=== PATIENT | male | born 1985 | race Hispanic/Latino ===

== ENCOUNTER 2022-08-15 18:38 | Emergency (ER) | payer OTHER, SELFPAY ==
--- NOTE | ~2022-08-15 | XR_ITS ---
EXAMINATION: XR chest 2V Exam Date/Time: 08/15/2022 18:53 CDT HISTORY: sob Comparison: None available. RESULT: Lines, tubes, and devices: None. Lungs and pleura: Clear. Cardiomediastinal silhouette: Unremarkable. Other: No acute osseous or upper abdominal finding. IMPRESSION: No acute cardiopulmonary process. Reviewed, dictated and finalized at location K.
[2022-08-15 18:53] VITALS: BP 152/87; PULSE 60; RESP 20; TEMP 36.9; O2SAT 99
--- NOTE | 2022-08-15 18:54 | ED.GENADULT ---
HPI - General Adult General Chief complaint: Upper Respiratory Infection Stated complaint: SOB Time Seen by Provider: 08/15/22 18:54 Source: patient Mode of arrival: ambulatory Limitations: no limitations History of Present Illness HPI narrative: 37-year-old male presents with complaint difficulty taking a deep breath. Reports that is making him feel short of breath. States that it happened last night while he was at home. [place] better today. 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 Reports that he had no difficulty breathing during these activities. began to feel symptoms began a few hours ago. Denies URI symptoms. Denies chest pain. No indigestion. Reports eating and drinking normally. No nausea vomiting diarrhea. States he has a fullness sensation in his chest and feels like not getting enough air in . He does not smoke or vape. He denies history of Anxiety other than feeling anxious currently from the way his breathing is at this time. he is speaking in full sentences. All systems reviewed and negative except as noted above. Related Data Home Medications Medication Instructions Recorded Confirmed No Home Medications 08/15/22 08/15/22 Allergies Allergy/AdvReac Type Severity Reaction Status Date / Time No Known Allergies Allergy Verified 08/15/22 18:44 Review of Systems Review of Systems: CONSTITUTIONAL: Denies fever, chills, or sweats. EYES: Denies visual changes, redness, or discharge. ENT: Denies rhinorrhea, congestion, sore throat, or otalgia. CARDIOVASCULAR: Denies chest pain, palpitations, or edema. RESPIRATORY: Denies cough . Reports dyspnea. GASTROINTESTINAL: Denies abdominal pain, nausea, vomiting, or diarrhea. GENITOURINARY: Denies dysuria or hematuria. SKIN: Denies rash or itching. MUSCULOSKELETAL: Denies back pain, joint pain, or myalgia. NEUROLOGIC: Denies headache, numbness, or weakness. PSYCHIATRIC: Denies anxiety or depression. All other systems reviewed are negative, except as documented in HPI. PMFSH Social History Social History Smoking status: Never smoker Alcohol intake: never Comments At time of signature, agree with nursing past medical, surgical, social and family history. There is no relevant family history pertinent to the presenting complaint. Exam Narrative: GENERAL: This is a well-nourished, well-developed patient, in no apparent distress. HEAD: normocephalic, atraumatic. EYES: PERRL. Sclera clear/white. Vision is grossly intact. EARS: External ears normal, auditory canals clear and without drainage, TMs normal without perforation. Hearing grossly intact. NOSE: External nose normal with no obvious nasal discharge, nares without redness, no rhinorrhea. THROAT: Mucous membranes moist, posterior pharynx clear. NECK: Neck supple, non-tender without lymphadenopathy, masses or thyromegaly. CARDIOVASCULAR: Regular rate and rhythm without murmurs, gallops, or rubs. RESPIRATORY: Clear to auscultation. Breath sounds equal bilaterally. No wheezes, rales, or rhonchi. SKIN: warm, Dry, intact with no suspicious lesions or rash, good texture and turgor. NEURO: awake, alert, and oriented to person, place and time. There were no obvious focal neurologic abnormalities. EXTREMITIES: No joint tenderness, effusion, or edema noted. Course Course Level of Care: Express Care Visit Vital Signs Vital signs: Vital Signs Temperature 36.9 C 08/15/22 18:53 Pulse Rate 60 08/15/22 18:53 Respiratory Rate 20 08/15/22 18:53 Blood Pressure 152/87 H 08/15/22 18:53 Pulse Oximetry 99 08/15/22 18:53 Oxygen Delivery Room Air 08/15/22 18:53 Temperature 36.9 C 08/15/22 18:53 Pulse Rate 60 08/15/22 18:53 Respiratory Rate 20 08/15/22 18:53 Blood Pressure 152/87 H 08/15/22 18:53 Pulse Oximetry 99 08/15/22 18:53 Oxygen Delivery Room Air 08/15/22 18:53 reviewed Transfer Transfered to: [facility] Transportation: Other (private car)
--- NOTE | 2022-08-15 19:04 | ECG_ITS ---
Measurements Intervals [place] Rate: 50 P: 70 RI: 202 QRS: 85 QRSD: 103 T: 47 QT: 402 QTc: 369 Interpretive Statements SINUS BRADYCARDIA VOLTAGE CRITERIA FOR LVH [MEETS CRITERIA IN ONE OF: R(aVL), S(V1), R(V5), R(V5/V6)+S(V1)] ST ELEVATION, CONSIDER EARLY REPOLARIZATION, PERICARDITIS OR INJURY PATTERN ABNORMAL ECG COMPARED TO ECG 08/15/2022 19:16:00 LEFT VENTRICULAR HYPERTROPHY NOW PRESENT Electronically Signed On 08-16-2022 14:35:41 CDT by Myron Gomez M.D.
== END 2022-08-15 19:33 | disposition short-term general hospital (02) ==
PROVIDERS: Emergency Provider Nurse Practitioner Family
DX: R06.00 Dyspnea, unspecified (principal); R94.31 Abnormal electrocardiogram [ECG] [EKG]
CPT/HCPCS: 71046; 93005; 99213; G0463

== ENCOUNTER 2022-08-15 19:51 | Emergency (ER) | payer OTHER, SELFPAY ==
[2022-08-15] VITALS (12 sets, daily range): BP systolic 136–147; BP diastolic 79–99; PULSE 42–56; RESP 13–18; TEMP 36.3–36.6; O2SAT 94–99
--- NOTE | ~2022-08-15 | XR_ITS ---
EXAMINATION: XR chest 2V Exam Date/Time: 08/15/2022 20:50 CDT HISTORY: sob Comparison: 08/15/2022 at 6:54 PM. RESULT: Lines, tubes, and devices: None. Lungs and pleura: Clear. Cardiomediastinal silhouette: Stable. Other: No acute osseous or upper abdominal finding. IMPRESSION: No acute cardiopulmonary process. Reviewed, dictated and finalized at location K.
--- NOTE | 2022-08-15 19:53 | ECG_ITS ---
Measurements Intervals [place] Rate: 53 P: 38 PA: 203 QRS: 83 QRSD: 100 T: 43 QT: 406 QTc: 383 Interpretive Statements SINUS BRADYCARDIA ST ELEVATION, PROBABLY EARLY REPOLARIZATION [ST ELEVATION WITH NORMALLY INFLECTED T WAVE] VERSUS PERICARDITIS ABNORMAL ECG NO PREVIOUS ECG AVAILABLE FOR COMPARISON Electronically Signed On 08-16-2022 14:35:00 CDT by Myron Gomez M.D.
[2022-08-15 20:14] LABS: Basophils Absolute Auto 0.1 K/mm3 (0.0-0.1); Eosinophils Absolute Auto 0.7 K/mm3 (0-0.3); Eosinophils Percent Auto 8.5 % (0-4.4); Hemoglobin 15.7 g/dL (14.0-18.0); Immature Granulocyte Absolute 0.02 K/mm3 (0.00-0.031); Immature Granulocyte Percent A 0.2 % (0-0.5); Lymphocytes Absolute Auto 2.28 K/mm3 (0.9-3.2); Lymphocytes Percent Auto 27.3 % (18.3-44.2); Mean Corpuscular HGB Conc 33.4 g/dl (32-36); Mean Corpuscular Hemoglobin 32.5 pg (26-34); Mean Corpuscular Volume 97.3 fl (80-100); Mean Platelet Volume 10.4 fl (7.4-10.4); Monocytes Absolute Auto 0.7 K/mm3 (0.1-0.6); Monocytes Percent Auto 8.3 % (2.6-8.5); Neutrophils Absolute Auto 4.6 K/mm3 (1.3-6.7); Neutrophils Percent Auto 54.7 % (45.5-73.1); Platelet Count Result 272 k/mm3 (150-375); Red Blood Count 4.83 M/mm3 (4.6-6.20); Red Cell Distribution Width 12.3 % (11.5-14.5); White Blood Count 8.3 K/mm3 (4.5-10.0)
[2022-08-15 20:29] LABS: Alanine Aminotransferase 38 U/L (6-50); Albumin Level 4.8 g/dL (3.5-5.1); Alkaline Phosphatase 77 U/L (38-126); Anion Gap 5 mmol/L (8-16); Aspartate Amino Transferase 48 U/L (17-59); Bilirubin,Total 0.6 mg/dL (0.2-1.3); Blood Urea Nitrogen 17 mg/dL (9-20); Calcium 9.1 mg/dL (8.4-10.2); Carbon Dioxide 35 mmol/L (22-30); Chloride 100 mmol/L (98-107); Estimated CRCL calculation 71 ml/min; Estimated Glomerular Filt Rate > 60; Glucose 77 mg/dL (65-110); Potassium 3.7 mmol/L (3.4-5.0); Sodium 140 mmol/L (137-145)
--- NOTE | 2022-08-15 22:10 | ED.SOB ---
HPI - SOB/Dyspnea General Chief Complaint: Shortness of Breath/Dyspnea Stated Complaint: sob Time Seen by Provider: 08/15/22 21:49 Source: patient and RN notes reviewed Mode of arrival: ambulatory Limitations: no limitations History of Present Illness HPI Narrative: This is a 37 year old male who presents for evaluation of shortness of breath. PAtient states last night while he was watching TV he started feeling short of breath. He states he feels like he can't take a good breath. He is unsure if it is chest tightness. He states he had this feeling last night into the morning. THis morning this feeling resolved. He was able to work out today without any chest pain or shortness of breath. He states he feels like is short of breath now. He denies cough, fever, chills, leg swelling, calf pain. He denies any recent travel or exposures. Related Data Home Medications Medication Instructions Recorded Confirmed No Home Medications 08/15/22 08/15/22 Allergies Allergy/AdvReac Type Severity Reaction Status Date / Time No Known Allergies Allergy Verified 08/15/22 19:52 Review of Systems Constitutional: Constitutional: Denies weakness Cardiovascular: Cardiovascular: Denies syncope, Denies rapid heart rate, Denies irregular heart rhythm, Denies leg edema and Denies dyspnea Respiratory: Respiratory: Denies chest congestion, Denies hemoptysis, Denies excessive phlegm production and Reports dyspnea Gastrointestinal: Gastrointestinal: Denies abdominal pain, Denies hematochezia, Denies diarrhea and Denies vomiting Genitourinary: Genitourinary: Denies hematuria, Denies dysuria, Denies penile discharge and Denies testicular pain Musculoskeletal: Musculoskeletal: Denies joint swelling, Denies loss of height and Denies muscle weakness Neurologic: Denies syncope, Denies focal weakness and Denies weakness PMFSH Surgical History Surgical History (Updated 08/15/22 @ 22:13 by Kat Painter MD) No significant past surgical history Social History Social History Smoking status: Never smoker Alcohol intake: never Exam Narrative: GENERAL: Well-appearing, well-nourished, and in no acute distress. HEAD: Normocephalic, atraumatic EYES: PERRLA and EOMI, conjunctiva clear without discharge THROAT:Mucous membranes moist, Oropharynx normal without erythema, exudate, peritonsillar swelling or fluctuance NECK: Supple, without lymphadenopathy or mass RESPIRATORY: No respiratory distress, Airway patent, Respirations non-labored, Clear to auscultation without rales, rhonchi or wheeze HEART: Regular rate and rhythm. No murmur heard. Normal peripheral pulses. ABDOMEN: Soft, nontender, nondistended, normal active bowel sounds. No masses. No rebound or guarding, No organomegaly. EXTREMITIES: No edema, normal strength with full range of motion. SKIN: Warm, dry, normal color without rash NEURO: Alert and oriented x3. CN 2-12 grossly intact. No focal deficits. PSYCH: Normal mood and affect. Neuro: Speech: No Abnormal speech present Course Reevaluation(s) Reevaluation #1: I Discussed with patient labs are unremarkable. 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 Chest xray is clear. I discussed with patient he should follow up with PCP Date: 08/15/22 Time: 23:24 Vital Signs Vital signs: Vital Signs Temperature 97.4 F L 08/15/22 20:01 Pulse Rate 52 L 08/15/22 20:01 Respiratory Rate 18 08/15/22 20:01 Blood Pressure 147/99 H 08/15/22 20:01 Pulse Oximetry 98 08/15/22 20:01 Oxygen Delivery Room Air 08/15/22 20:01 Temperature 98 F 08/15/22 22:47 Pulse Rate 50 L 08/15/22 22:47 Respiratory Rate 15 08/15/22 22:47 Blood Pressure 136/90 08/15/22 22:47 Pulse Oximetry 94 08/15/22 22:47 Oxygen Delivery Room Air 08/15/22 21:00 MDM - SOB/Dyspnea Differential Diagnosis Differential diagnosis: Likely congestive heart failure, co
[2022-08-15 22:54] LABS: Prothrombin Time 12.4 Seconds (11.1-14.7)
[2022-08-15 22:55] LABS: Partial Thromboplastin Time 28.3 SECONDS (22.3-36.8)
[2022-08-15 23:06] LABS: NT Pro B Type Natriuretic Pept < 20 pg/mL (19.9-100); Troponin I 0.016 ng/mL (0.000-0.034)
[2022-08-15 23:20] LABS: SARS-CoV-2 RNA PCR Negative (Negative)
== END 2022-08-15 23:40 | disposition home or self-care (01) ==
PROVIDERS: Emergency Medicine; Emergency Provider General Practice
DX: R06.00 Dyspnea, unspecified (principal); R00.1 Bradycardia, unspecified; Z20.822 Contact with and (suspected) exposure to COVID-19
CPT/HCPCS: 36415; 71046; 80053; 83880; 84484; 85025; 85380; 85610; 85730; 93005; 99284; U0003; U0005

== ENCOUNTER 2023-12-22 10:23 | Outpatient (CLI) | payer OTHER, SELFPAY ==
--- NOTE | ~2023-12-22 | US_ITS ---
EXAMINATION: US soft tissue abdomen DATE: 12/22/2023 11:08 INDICATION: Umbilical hernia. TECHNIQUE: Multiple grayscale and Doppler ultrasound images of the abdomen were obtained. COMPARISON: None FINDINGS: There is no abnormal mass or hernia in the patient's area of concern. IMPRESSION: 1. No abnormal mass or hernia in the patient's area of concern. Reviewed, dictated and finalized at location A.
== END 2023-12-22 10:24 | disposition home or self-care (01) ==
LOC: MICIMG 10:24
PROVIDERS: PCP Family Medicine
DX: K42.9 Umbilical hernia without obstruction or gangrene (principal)
CPT/HCPCS: 76705